=== PATIENT | female | born 2000 | race Caucasian/White ===

== ENCOUNTER → 2024-12-02 12:29 | Outpatient (BNVA) | payer OTHER, SELFPAY | PROVIDERS: PCP Nurse Practitioner Adult Health; Visit Provider Internal Medicine | DX: E06.3 Autoimmune thyroiditis (principal); E10.9 Type 1 diabetes mellitus without complications | CPT/HCPCS: 36415; 80053; 80061; 82044; 83036; 84439; 84443 ==

== ENCOUNTER → 2025-04-13 12:35 | Outpatient (BNVA) | payer OTHER, SELFPAY | PROVIDERS: PCP Nurse Practitioner Adult Health; Visit Provider Internal Medicine | DX: E10.9 Type 1 diabetes mellitus without complications (principal); E06.3 Autoimmune thyroiditis | CPT/HCPCS: 36415; 80053; 80061; 82044; 83036; 84439; 84443 ==